=== PATIENT | female | born 1945 | race Caucasian/White ===

== ENCOUNTER → 2016-12-19 | Outpatient (CLI) | payer OTHER | LOC: FIMAGING 10:13 | DX: Z12.31 Encounter for screening mammogram for malignant neoplasm of breast (principal) | CPT/HCPCS: G0202 ==

== ENCOUNTER → 2017-12-25 | Outpatient (CLI) | payer OTHER | LOC: FIMAGING 10:47 | PROVIDERS: ATTEND Family Medicine | DX: Z12.31 Encounter for screening mammogram for malignant neoplasm of breast (principal) ==

== ENCOUNTER → 2018-12-31 | Outpatient (CLI) | payer OTHER | LOC: FIMAGING 11:23 | PROVIDERS: ATTEND Family Medicine | DX: Z12.31 Encounter for screening mammogram for malignant neoplasm of breast (principal) ==

== ENCOUNTER → 2019-01-15 | Outpatient (CLI) | payer OTHER | LOC: FIMAGING 10:23 | PROVIDERS: ATTEND Family Medicine | DX: R92.8 Other abnormal and inconclusive findings on diagnostic imaging of breast (principal) ==